=== PATIENT | female | born 1965 | race Caucasian/White ===

== ENCOUNTER 2017-01-16 06:30 | Emergency (ER) | payer SELFPAY ==
[2017-01-16] MEDS ORDERED: Succinylcholine Chloride 20 mg/mL 5 mL Inj ONE (06:31)
[2017-01-16] MEDS ORDERED: Rocuronium 10 mg/mL 5 mL Inj ONE (06:31)
[2017-01-16] MEDS ORDERED: Propofol 10,000 mCg/mL 20 mL Inj ONE (06:31)
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
[2017-01-16] MEDS ORDERED: Propofol 10,000 mCg/mL 100 mL Inj ONE (06:33)
[2017-01-16 06:42] VITALS: BP 118/71; PULSE 151; RESP 23; O2SAT 98
[2017-01-16] MEDS ORDERED: Propofol Inj 1,000,000 MCG in IV Premix 1 EACH IV SCH (06:47)
[2017-01-16] MEDS ORDERED: 0.9% Sodium Chloride 1,000 ML IV ONE (06:47)
[2017-01-16 06:50] VITALS: BP 153/100; PULSE 133; RESP 18; O2SAT 100
[2017-01-16] MEDS ORDERED: Propofol 10 mg/mL 20 mL Inj IVPUSH ONE ×4 (06:50)
[2017-01-16 07:14] LABS: BASOPHILS % (AUTO) 0.9 % (0-3); EOSINOPHILS % (AUTO) 1.7 % (0-5); MONOCYTES % (AUTO) 5.7 % (4-12); Mean Corpuscular Hemoglobin 37.1 pg (27.0-35.0); Mean Corpuscular Volume 114.3 fL (81-100); NEUTROPHILS % (AUTO) 64.6 % (40-74); Platelet Count 260 bil/L (150-400)
[2017-01-16] MEDS ORDERED: Dextrose 10% 250 ML IV ONE (07:39)
[2017-01-16 07:44] LABS: INR 1.07 ratio
[2017-01-16] MEDS ORDERED: LEVE500T3 PO (07:46)
[2017-01-16] MEDS ORDERED: ACAM333T7 PO (07:46)
--- NOTE | 2017-01-16 07:46 | ABG ---
DateTimeAnalyzed 07:37:00 -_ HCO3- ____6.4__ -mmol/L 22.0 26.0 ABE __-21.9__ -mmol/L -2.0 2.0 FIO2 ___50.0__ -% Drawn By jmw - B 759 -mmHg tO2 ____8.3__ -Vol%
--- NOTE | 2017-01-16 07:48 | ABG ---
DateTimeAnalyzed 07:40:00 -_ pH ____7.073 - 7.350 7.450 pCO2 ___22.3__ -mmHg 35.0 45.0 pO2 323 -mmHg 69.0 116 HCO3- ____6.2__ -mmol/L 22.0 26.0 ABE __-22.3__ -mmol/L -2.0 2.0 tHb ____7.9__ -g/dL O2Hb ___96.9__ -% COHb ____0.9__ -% MetHb ____0.7__ -% sO2 ___98.5__ -% FIO2 ___50.0__ -% PEEP ____5.0__ -cmH2O Set_RR ___22.0__ -b/min Vt __420.0__ -L Drawn By jmw - Date/Time Notified____ 07:47:00 -_ Spontaneous_RR ___22.0__ -b/min A/C __390.0__ - Oxygen Device 1 VENTILATOR - Notified By jmw - Notified Whom DR LAURSEN - B 759 -mmHg tO2 ___11.6__ -Vol% Howard test _Positive -
--- NOTE | 2017-01-16 07:52 | DRSVH ---
PROCEDURE: X-RAY CHEST ONE VIEW, PORTABLE ([id number]) INDICATIONS: POST INTUBATION, ALTERED MENTAL STATUS TECHNIQUE: One view of the chest was acquired. COMPARISON: None. FINDINGS: Surgical changes and devices: ETT is present, tip of which is in expected location. Lungs and pleura: No pleural effusions or pneumothorax. Lungs are clear. Mediastinum: Mediastinal contours appear normal. Heart size is normal. Bones and chest wall: No suspicious bony lesions. Overlying soft tissues appear unremarkable. IMPRESSION: No acute process. Dictated by: Lemuel Peralta M.D. on 01/16/2017 at 7:50 Approved by: Lemuel Peralta M.D. on 01/16/2017 at 7:51
[2017-01-16 07:55] VITALS: BP 110/60; PULSE 123; RESP 20; O2SAT 100
[2017-01-16] MEDS ORDERED: fentaNYL-PF 50 mCg/mL 2 mL Inj ONE (07:58)
[2017-01-16 08:00] VITALS: O2SAT 100
[2017-01-16] MEDS ORDERED: fentaNYL 2,500 mCg/250 mL 2,500 MCG in IV Premix 1 EACH IV SCH (08:00)
[2017-01-16] MEDS ORDERED: Rocuronium 10 mg/mL 5 mL Inj IVPUSH ONE (08:00)
[2017-01-16] MEDS ORDERED: fentaNYL-PF 50 mCg/mL 2 mL Inj IVPUSH ONE (08:00)
[2017-01-16] MEDS ORDERED: SODIUM BICARB IVPUSH ONE (08:10)
[2017-01-16] MEDS ORDERED: Sodium Bicarb (50 mEq) 8.4% 1 mEq/mL 50 mL Syringe ONE (08:15)
[2017-01-16 08:28] VITALS: BP_SYST 115; RESP 22; O2SAT 100
--- NOTE | 2017-01-16 08:38 | DRSVH ---
PROCEDURE: CT BRAIN WITHOUT CONTRAST ([id number]) INDICATIONS: altered mental status TECHNIQUE: Noncontrast 4.5 mm thick angled axial sections acquired from the foramen magnum to the vertex, with c oronal reformats. COMPARISON: None. FINDINGS: Image quality: Excellent. CSF spaces: Basal cisterns are patent. No extra-axial fluid collections. There is mild compression of the body of the left lateral ventricle. The ventricles are otherwise symmetric in size and shape. Brain: No intracranial masses. Subdural high density overlying the left frontotemporal, temporal, an d parietal lobes predominantly is present, with a maximal thickness of roughly 10 mm. There is roughl y 6 mm of rightward subfalcine herniation. There is cerebral volume loss for age, with resultant vent ricular and sulcal prominence. There are periventricular and deep white matter chronic small vessel ischemic changes. There is intracranial internal carotid artery atherosclerosis. Skull and face: Calvarium and visualized facial bones appear intact, without suspicious lesions. Sinuses: Visualized sinuses and mastoids are clear. IMPRESSION: 1. Left convexity subdural hematoma, with associated rightward subfalcine herniation. Concordant with preliminary interpretation. Dictated by: Lemuel Peralta M.D. on 01/16/2017 at 8:31 Approved by: Lemuel Peralta M.D. on 01/16/2017 at 8:37
== END 2017-01-16 08:30 | disposition short-term general hospital (02) ==
LOC: SED 06:30 → EDBD 06:30 → EDSEX 06:30 → SED 08:30
DX: S06.5X0A Traumatic subdural hemorrhage without loss of consciousness, initial encounter (principal); R56.9 Unspecified convulsions; E87.2 Acidosis; E87.5 Hyperkalemia; V91.87XA Other injury due to other accident to water-skis, initial encounter; Y93.17 Activity, water skiing and wake boarding; Y92.9 Unspecified place or not applicable; Y99.9 Unspecified external cause status
CPT/HCPCS: 31500; 36415; 51702; 70450; 71010; 80053; 82948; 83605; 84132; 85025; 85610; 87040; 93005; 94002; 94799; 96361; 96374; 96375; 99291; 99292; G0480; J0330; J2250; J3010; J7030